=== PATIENT | male | born 1995 | race Caucasian/White ===

== ENCOUNTER 2020-01-29 03:20 | Emergency (ER) | payer OTHER ==
[2020-01-29] MEDS ORDERED: IBUPROFEN 600 MG TAB PO STA (04:13)
[2020-01-29 04:26] LABS: Basophils # (A) 0.1 k/uL (0-0.2); Basophils % (A) 1 %; Eosinophils # (A) 0.1 k/uL (0-0.7); Eosinophils % (A) 1 %; HCT 45.4 % (39.0-53.0); HGB 16.6 gm/dL (13.0-17.5); Lymphocytes # (A) 1.4 k/uL (1.0-4.8); Lymphocytes % (A) 17 %; MCH 33.4 pg (25.0-35.0); MCHC 36.6 g/dL (31.0-37.0); MCV 91.3 fL (80.0-100.0); Mean Platelet Volume 8.7; Monocytes # (A) 0.6 k/uL (0-1.0); Monocytes % (A) 7 %; Neutrophils # (A) 6.1 k/uL (1.3-7.7); Neutrophils % (A) 73 %; Platelet Count 167 k/uL (150-450); RBC 4.97 m/uL (4.30-5.90); RDW 12.7 % (11.5-15.5); WBC 8.4 k/uL (3.8-10.6)
[2020-01-29] MEDS: SODIUM CHLORIDE 0.9% 500 ML 500 ML IV SCH ×2 (04:33→06:10)
[2020-01-29 04:35] LABS: INR 0.9 (<1.2); Partial Thromboplastin Time 30.2 sec (22.0-30.0); Prothrombin Time 9.9 sec (9.0-12.0)
[2020-01-29 04:36] LABS: ALT 32 U/L (4-49); AST 41 U/L (17-59); African American GFR (CKD) >90 (>60 ml/min/1.73 sqM); Albumin 4.4 g/dL (3.5-5.0); Alkaline Phosphatase 110 U/L (38-126); Anion Gap 8 mmol/L; Blood Urea Nitrogen 14 mg/dL (9-20); Calcium 9.2 mg/dL (8.4-10.2); Carbon Dioxide 25 mmol/L (22-30); Chloride 101 mmol/L (98-107); Creatine Kinase 614 U/L (55-170); Glucose 92 mg/dL (74-99); Non-African American GFR(CKD) >90 (>60 ml/min/1.73 sqM); Potassium 3.3 mmol/L (3.5-5.1); Sodium 134 mmol/L (137-145); Total Bilirubin 0.9 mg/dL (0.2-1.3); Total Protein 7.3 g/dL (6.3-8.2)
--- NOTE | 2020-01-29 04:40 | ED ---
SOB HPI - General Chief Complaint: Shortness of Breath Stated Complaint: Fever, Vomiting Time Seen by Provider: 01/29/20 03:41 Source: patient, family Mode of arrival: ambulatory Limitations: no limitations - History of Present Illness Initial Comments: Devaughn is a pleasant previously healthy 24-year-old male who presents the ER today with complaints of flulike illness. Patient reports that for the past 3 days he's been having subjective fevers, chills, bodyaches he's had cold sweats. He reports that he's had a minimally productive cough and this evening coughed so hard that he vomited. He reports he's felt nauseated and had decreased appetite he has not been eating or drinking well. Patient does report that his sister is currently pending for results of the test he has been in contact with her since she's been symptomatic though he does report that contact was brief just dropping off food for her. He also reports that he has been working construction throughout quarantine but has had minimum contact with people and just been working with his uncle. MD Complaint: shortness of breath - Related Data Allergies Allergy/AdvReac Type Severity Reaction Status Date / Time No Known Allergies Allergy Verified 01/29/20 03:33 Review of Systems ROS Statement: Those systems with pertinent positive or pertinent negative responses have been documented in the HPI. ROS Other: All systems not noted in ROS Statement are negative. Past Medical History Past Medical History: No Reported History History of Any Multi-Drug Resistant Organisms: None Reported Past Surgical History: No Surgical Hx Reported Past Psychological History: No Psychological Hx Reported, Anxiety, Depression Smoking Status: Current every day smoker Past Alcohol Use History: Occasional Past Drug Use History: None Reported General Exam - General Exam Comments Initial Comments: Physical Exam GENERAL: Ill-appearing young male, skin is warm and moist HENT: Normocephalic, Atraumatic. EYES: PERRL, EOMI PULMONARY: Unlabored respirations. No audible rales rhonchi or wheezing was noted. CARDIOVASCULAR: Tachycardic regular without any murmurs gallops or rubs. ABDOMEN: Soft and nontender with normal bowel sounds. SKIN: Skin is clear with no lesions or rashes and otherwise unremarkable. : Deferred NEUROLOGIC: Patient is alert and oriented x3. Moving all extremities spontaneously MUSCULOSKELETAL: Normal extremities with adequate strength and full range of motion. No lower extremity swelling or edema. No calf tenderness. PSYCHIATRIC: Normal psychiatric evaluation. Limitations: no limitations Course Vital Signs 01/29/20 01/29/20 01/29/20 03:29 03:33 04:12 Temperature 98.7 F 100.4 F H Pulse Rate 120 H 101 H Respiratory 22 18 18 Rate Blood Pressure 114/83 O2 Sat by Pulse 97 98 Oximetry 01/29/20 05:11 Temperature 99.6 F Pulse Rate 97 Respiratory 18 Rate Blood Pressure 126/74 O2 Sat by Pulse 96 Oximetry Medical Decision Making - Medical Decision Making The patient was seen and evaluated history was obtained from the patient History and physical exam are concerning for a flulike illness possibly coronavirus eczema. The workup was initiated IV fluids were given antipyretics were given exam labs resulted with mildly elevated creatinine kinase mild hypo kalemia no other significant abnormalities Results were discussed with the patient who reports feeling better after Motrin and fluids at this time patient's comfortable with the plan for discharge home continued outpatient follow-up. Return parameters were discussed. Patient was encouraged to return if he has any worsening of his condition development of any shortness breath chest pain or new or concerning symptoms. Patient's breast understanding of this plan and is comfortable at this time for discharge home. - Lab Data Result diagrams: 01/29/20 04:09 01/29/20 04:09 Lab Results 01/29/20 01/29/20 01/29/20 Range/Units 04:09 04:09 04:09 WBC 8.4 (3.8-10.6) k/uL RBC 4.97 (4.30-5.90) m/uL Hgb 16.6 (13.0-17.5) gm/dL Hct 45.4 (39.0-53.0) % MCV 91.3 (80.0-100.0) fL MCH 33.4 (25.0-35.0) pg MCHC 36.6 (31.0-37.0) g/dL RDW 12.7 (11.5-15.5) % Plt Count 167 (150-450) k/uL Neutrophils % 73 % Lymphocytes % 17 % Monocytes % 7 % Eosinophils % 1 % Basophils % 1 % Neutrophils # 6.1 (1.3-7.7) k/uL Lymphocytes # 1.4 (1.0-4.8) k/uL Monocytes # 0.6 (0-1.0) k/uL Eosinophils # 0.1 (0-0.7) k/uL Basophils # 0.1 (0-0.2) k/uL PT 9.9 (9.0-12.0) sec INR 0.9 (<1.2) APTT 30.2 H (22.0-30.0) sec Sodium 134 L (137-145) mmol/L Potassium 3.3 L (3.5-5.1) mmol/L Chloride 101 (98-107) mmol/L Carbon Dioxide 25 (22-30) mmol/L Anion Gap 8 mmol/L BUN 14 (9-20) mg/dL Creatinine 1.10 (0.66-1.25) mg/dL Est GFR (CKD-EPI)AfAm >90 (>60 ml/min/1.73 sqM) Est GFR (CKD-EPI)NonAf >90 (>60 ml/min/1.73 sqM) Glucose 92 (74-99) mg/dL Plasma Lactic Acid Fortunato (0.7-2.0) mmol/L Calcium 9.2 (8.4-10.2) mg/dL Total Bilirubin 0.9 (0.2-1.3) mg/dL AST 41 (17-59) U/L ALT 32 (4-49) U/L Alkaline Phosphatase 110 (38-126) U/L Creatine Kinase 614 H (55-170) U/L Troponin I (0.000-0.034) ng/mL Total Protein 7.3 (6.3-8.2) g/dL Albumin 4.4 (3.5-5.0) g/dL Urine Color Urine Appearance (Clear) Urine pH (5.0-8.0) Ur Specific Lovell (1.001-1.035) Urine Protein (Negative) Urine Glucose (UA) (Negative) Urine Ketones (Negative) Urine Blood (Negative) Urine Nitrite (Negative) Urine Bilirubin (Negative) Urine Urobilinogen (<2.0) mg/dL Ur Leukocyte Esterase (Negative) Urine RBC (0-5) /hpf Urine WBC (0-5) /hpf Urine Mucus (None) /hpf Urine Sperm (None) /hpf 01/29/20 01/29/20 01/29/20 Range/Units 04:09 04:09 05:10 WBC (3.8-10.6) k/uL RBC (4.30-5.90) m/uL Hgb (13.0-17.5) gm/dL Hct (39.0-53.0) % MCV (80.0-100.0) fL MCH (25.0-35.0) pg MCHC (31.0-37.0) g/dL RDW (11.5-15.5) % Plt Count (150-450) k/uL Neutrophils % % Lymphocytes % % Monocytes % % Eosinophils % % Basophils % % Neutrophils # (1.3-7.7) k/uL Lymphocytes # (1.0-4.8) k/uL Monocytes # (0-1.0) k/uL Eosinophils # (0-0.7) k/uL Basophils # (0-0.2) k/uL PT (9.0-12.0) sec INR (<1.2) APTT (22.0-30.0) sec Sodium (137-145) mmol/L Potassium (3.5-5.1) mmol/L Chloride (98-107) mmol/L Carbon Dioxide (22-30) mmol/L Anion Gap mmol/L BUN (9-20) mg/dL Creatinine (0.66-1.25) mg/dL Est GFR (CKD-EPI)AfAm (>60 ml/min/1.73 sqM) Est GFR (CKD-EPI)NonAf (>60 ml/min/1.73 sqM) Glucose (74-99) mg/dL Plasma Lactic Acid Fortunato 0.9 (0.7-2.0) mmol/L Calcium (8.4-10.2) mg/dL Total Bilirubin (0.2-1.3) mg/dL AST (17-59) U/L ALT (4-49) U/L Alkaline Phosphatase (38-126) U/L Creatine Kinase (55-170) U/L Troponin I <0.012 (0.000-0.034) ng/mL Total Protein (6.3-8.2) g/dL Albumin (3.5-5.0) g/dL Urine Color Yellow Urine Appearance Clear (Clear) Urine pH 6.0 (5.0-8.0) Ur Specific Lovell 1.034 (1.001-1.035) Urine Protein 1+ H (Negative) Urine Glucose (UA) Negative (Negative) Urine Ketones Trace H (Negative) Urine Blood Negative (Negative) Urine Nitrite Negative (Negative) Urine Bilirubin Negative (Negative) Urine Urobilinogen 3.0 (<2.0) mg/dL Ur Leukocyte Esterase Negative (Negative) Urine RBC 5 (0-5) /hpf Urine WBC 1 (0-5) /hpf Urine Mucus Many H (None) /hpf Urine Sperm Occasional H (None) /hpf Disposition Clinical Impression: Viral syndrome Disposition: HOME SELF-CARE Condition: Stable Instructions (If sedation given, give patient instructions): Viral Syndrome (ED) Is patient prescribed a controlled substance at d/c from ED?: No Referrals: Kristi Melton MD [Primary Care Provider] - 1-2 days
--- NOTE | 2020-01-29 05:00 | XR ---
EXAMINATION TYPE: XR chest 1V DATE OF EXAM: 01/29/2020 COMPARISON: NONE HISTORY: Fever and cough TECHNIQUE: FINDINGS: Heart and mediastinum are normal. Lungs are clear. Diaphragm is normal. Bony thorax appears normal. IMPRESSION: Normal chest.
[2020-01-29 05:21] LABS: Appearance,Urine Clear (Clear); Bilirubin,Urine Negative (Negative); Blood,Urine Negative (Negative); Color,Urine Yellow; Glucose,Urine (UA) Negative (Negative); Ketones,Urine Trace (Negative); Leukocyte Esterase,Urine Negative (Negative); Mucus,Urine Many /hpf; Nitrite,Urine Negative (Negative); Protein,Urine 1+ (Negative); RBC,Urine 5 /hpf (0-5); Specific Gravity,Urine 1.034 (1.001-1.035); Sperm,Urine Occasional /hpf; WBC,Urine 1 /hpf (0-5)
[2020-01-29 06:18] VITALS: BP 119/72; PULSE 94; RESP 16; TEMP 98.9
== END 2020-01-29 06:28 | disposition home or self-care (01) ==
LOC: EC 03:20
DX: B34.9 Viral infection, unspecified (principal); E87.6 Hypokalemia; R74.8 Abnormal levels of other serum enzymes; F17.200 Nicotine dependence, unspecified, uncomplicated
CPT/HCPCS: 36415; 93005; 80053; 82550; 83605; 84484; 85025; 85610; 85730; 81001; 87040; 71045; 99285; U0003

== ENCOUNTER 2020-01-31 19:01 | Emergency (ER) | payer OTHER ==
[2020-01-31 19:13] VITALS: TEMP 98.5
[2020-01-31] MEDS ORDERED: KETOROLAC 30 MG/ML 1 ML VIAL IM STA (19:44)
[2020-01-31] MEDS ORDERED: DEXAMETHASONE SOD PHOSPHATE 10 MG/ML 1 ML VIAL IM STA (19:44)
--- NOTE | 2020-01-31 20:11 | ED ---
General Adult HPI - General Chief complaint: Headache Stated complaint: recheck,Headache Time Seen by Provider: 01/31/20 19:15 Source: patient Mode of arrival: ambulatory Limitations: no limitations - History of Present Illness Initial comments: 24-year-old male patient presents to the emergency department today for evaluation of headache and sore throat. Patient states he has been sick for the last 3 days with elevated temperatures, vomiting, and headache. Patient states the headache started around the same time as his fevers started. States it is "splitting". States he has been taking Tylenol without relief. States his last dose was about 6 hours ago. Patient states that he is having a general sore throat seems to be worse on the right side. Patient states that he feels like the muscles on the outside of his right neck are sore. Denies neck stiffness. Patient doesn't believe he has had a fever today. States he had a episode of vomiting yesterday but none today. He denies any nasal congestion or drainage. States he does have a mild intermittent cough. Denies any abdominal pain, constipation, or diarrhea. Denies taking any other medications for his symptoms. Denies history of headache. Patient denies any recent rash, shortness of breath, chest pain, back pain, numbness, tingling, dizziness, weakness, hematuria, dysuria, urinary urgency, urinary frequency, headache, visual changes, or any other complaints. - Related Data Previous Rx's Medication Instructions Recorded Amoxic-Pot Clav 875-125Mg 1 tab PO Q12HR #20 tablet 01/31/20 [Augmentin 875-125] Ibuprofen [Motrin] 600 mg PO Q8HR PRN #30 tab 01/31/20 Allergies Allergy/AdvReac Type Severity Reaction Status Date / Time No Known Allergies Allergy Verified 01/31/20 19:13 Review of Systems ROS Statement: Those systems with pertinent positive or pertinent negative responses have been documented in the HPI. ROS Other: All systems not noted in ROS Statement are negative. Past Medical History Past Medical History: No Reported History History of Any Multi-Drug Resistant Organisms: None Reported Past Surgical History: No Surgical Hx Reported Past Psychological History: No Psychological Hx Reported, Anxiety, Depression Smoking Status: Current every day smoker Past Alcohol Use History: Occasional Past Drug Use History: None Reported General Exam Limitations: no limitations General appearance: alert, in no apparent distress, other (This is a well- developed, well-nourished adult male patient in no acute distress. Vital signs upon presentation are temperature 98.5F, pulse 95, respirations 20, blood pressure 137/83, pulse ox 98% on room air.) Eye exam: Present: normal appearance, PERRL, EOMI. Absent: scleral icterus, co njunctival injection, periorbital swelling ENT exam: Present: mucous membranes moist, TM's normal bilaterally. Absent: normal oropharynx (There is pharyngeal erythema, tonsillar hypertrophy, right tonsillar exudate.) Neck exam: Present: normal inspection, tenderness (Right-sided neck tenderness), full ROM. Absent: meningismus, lymphadenopathy Respiratory exam: Present: normal lung sounds bilaterally. Absent: respiratory distress, wheezes, rales, rhonchi, stridor Cardiovascular Exam: Present: regular rate, normal rhythm, normal heart sounds. Absent: systolic murmur, diastolic murmur, rubs, gallop, clicks GI/Abdominal exam: Present: soft, normal bowel sounds. Absent: distended, tenderness, guarding, rebound, rigid Neurological exam: Present: alert, oriented X3, CN II-XII intact Psychiatric exam: Present: normal affect, normal mood Skin exam: Present: warm, dry, intact, normal color. Absent: rash Course Vital Signs 01/31/20 01/31/20 01/31/20 19:07 21:35 23:43 Temperature 98.5 F Pulse Rate 95 72 Respiratory 20 16 18 Rate Blood Pressure 137/83 128/90 O2 Sat by Pulse 98 98 Oximetry Medical Decision Making - Medical Decision Making 24-year-old male patient presents to the emergency department today for evaluation of headache sore throat. Physical examination does reveal pharyngeal erythema, tonsillar hypertrophy, and tonsillar exudate. Tonsils are symmetric. Patient is currently afebrile however has had fever for the last 3 days. I did check a strep screen which was negative. Heterophile was added which was negative. X-ray of the soft tissues of the neck was ordered to rule out retropharyngeal abscess, this appears to be normal with enlarged adenoids. Upon reevaluation patient does report improvement of symptoms. We will discharge with prescription for Augmentin for tonsillitis. He is instructed to follow-up with his primary care physician for recheck in 1-2 days. Return parameters were discussed in detail. He verbalizes understanding and agrees with this plan. - Lab Data Lab Results 01/31/20 01/31/20 Range/Units 20:06 21:10 Heterophile Antibody Negative (Negative) Group A Strep Rapid Negative (Negative) - Radiology Data Radiology results: report reviewed, image reviewed Soft tissue neck x-ray was obtained. Report was reviewed in its entirety. Impression by Dr. Ruiz shows enlarged adenoids. Otherwise negative exam. Disposition Clinical Impression: Tonsillitis Disposition: HOME SELF-CARE Condition: Good Instructions (If sedation given, give patient instructions): Tonsillitis (ED) Additional Instructions: Take medications as needed for pain control. Complete antibiotic prescription and full. Follow-up through primary care physician for recheck in 1-2 days. Return to the emergency department immediately for any new, worsening, or concerning symptoms. Prescriptions: Amoxic-Pot Clav 875-125Mg [Augmentin 875-125] 1 tab PO Q12HR #20 tablet Ibuprofen [Motrin] 600 mg PO Q8HR PRN #30 tab PRN Reason: Pain Is patient prescribed a controlled substance at d/c from ED?: No Referrals: Kristi Melton MD [Primary Care Provider] - 1-2 days Time of Disposition: 23:18
[2020-01-31] MEDS ORDERED: SODIUM CHLORIDE 0.9% 1,000 ML IV ONE (21:19)
[2020-01-31] MEDS ORDERED: METOCLOPRAMIDE 5 MG/ML 2 ML VIAL IVP STA (21:22)
[2020-01-31] MEDS ORDERED: diphenhydrAMINE 50 MG/ML 1 ML VIAL IVP STA (21:22)
--- NOTE | 2020-01-31 23:15 | XR ---
EXAMINATION TYPE: XR soft tissue neck DATE OF EXAM: 01/31/2020 COMPARISON: NONE HISTORY: Swelling. Pain. TECHNIQUE: 2 views FINDINGS: Epiglottis is normal. Subglottic trachea appears normal. Prevertebral soft tissues appear n ormal. There is some hypertrophy of the adenoids that measure 17 mm. Tonsils are probably normal. Cer vical vertebra have normal spacing and alignment. IMPRESSION: Enlarged adenoids. Otherwise negative exam.
[2020-01-31] MEDS ORDERED: AMOXIC-POT CLAV 875MG STARTER PACK 2 TAB BTL PO STA (23:18)
[2020-01-31 23:44] VITALS: BP 128/90; PULSE 72; RESP 18
== END 2020-01-31 23:44 | disposition home or self-care (01) ==
LOC: EC 19:01
DX: J03.90 Acute tonsillitis, unspecified (principal); R05 Cough; F17.200 Nicotine dependence, unspecified, uncomplicated
CPT/HCPCS: 36415; 86308; 87081; 87430; 70360; 99284; 96374; 96375; 96361; 96372 ×2; J1200; J1100; J2765; J1885